=== PATIENT | male | born 1950 | race African-American/Black ===

== ENCOUNTER 2018-01-24 16:46 | Emergency (ER) | payer MEDICARE, MEDICAID ==
[~2018-01-24] VITALS: Ht 170.2 cm; Wt 70.0 kg
[2018-01-24 16:54] VITALS: BP 106/61
== END 2018-01-24 19:12 | disposition left against medical advice (07) ==
LOC: ER 16:46
DX: F10.10 Alcohol abuse, uncomplicated (principal); Y90.9 Presence of alcohol in blood, level not specified; Z53.21 Procedure and treatment not carried out due to patient leaving prior to being seen by health care provider

== ENCOUNTER 2021-04-03 08:38 | Emergency (ER) | payer BC, MEDICAID ==
[~2021-04-03] VITALS: Ht 175.3 cm; Wt 73.0 kg
[~2021-04-03 08:38] MED LIST: AMLO10TA80 PO; ASPI-1497 PO; FERR325T6 PO; LISI20TA31 PO; PRAV80TA21 PO; SCOP1PAT2 TD
[2021-04-03 09:18] LABS: HEMATOCRIT. 27.9 % (42.0-52.0); HEMOGLOBIN. 9.1 g/dL (14.0-18.0); MEAN CORPUSCULAR HEMOGLOBIN 29.1 pg (28.0-32.0); MEAN CORPUSCULAR VOLUME 89.1 fL (80.0-94.0); MEAN PLATELET VOLUME 8.5 fl (7.4-10.4); PLATELET 184 x1000/uL (130-400); RED BLOOD CELL COUNT 3.13 mill/uL (4.7-6.1); RED CELL DISTRIBUTION WIDTH 17.3 % (11.6-14.6)
[2021-04-03 09:24] LABS: CHLORIDE 114 mEq/L (98-107)
[2021-04-03 09:28] LABS: INR 1.1; PROTHROMBIN TIME 11.3 sec (9.6-11.0)
[2021-04-03 10:10] LABS: PLATELET ESTIMATE NORMAL
[2021-04-03] MEDS ORDERED: IOHEXOL-300 100 ML BOTTLE ONE (12:38)
[2021-04-03 14:40] VITALS: BP 154/86
== END 2021-04-03 14:57 | disposition short-term general hospital (02) ==
LOC: ER 08:38 → CANBEDREQ 16:47
DX: R13.10 Dysphagia, unspecified (principal); F03.90 Unspecified dementia, unspecified severity, without behavioral disturbance, psychotic disturbance, mood disturbance, and anxiety; E78.00 Pure hypercholesterolemia, unspecified; I10 Essential (primary) hypertension; Z87.440 Personal history of urinary (tract) infections; Z90.49 Acquired absence of other specified parts of digestive tract; Z79.899 Other long term (current) drug therapy
CPT/HCPCS: 36415; 70491; 80053; 85025; 85610; 99291; Q9967